=== PATIENT | female | born 1945 | race Caucasian/White ===

== ENCOUNTER → 2019-09-30 | Outpatient (CLI) | payer MEDICARE | END | disposition home or self-care (01) | LOC: RAD 11:55 | PROVIDERS: ATTEND Family Medicine | DX: M48.56XA Collapsed vertebra, not elsewhere classified, lumbar region, initial encounter for fracture (principal); M25.78 Osteophyte, vertebrae; N28.1 Cyst of kidney, acquired | CPT/HCPCS: 72148 ==